=== PATIENT | female | born 1985 | race Hispanic/Latino ===

== ENCOUNTER 2018-09-30 09:26 | Emergency (ER) | payer OTHER, SELFPAY ==
[2018-09-30] MEDS ORDERED: ACETAMINOPHEN 325 MG TAB ONE (09:47)
== END 2018-09-30 10:19 | disposition home or self-care (01) ==
LOC: EDH 09:26
DX: S93.492A Sprain of other ligament of left ankle, initial encounter (principal); W18.39XA Other fall on same level, initial encounter; Y93.01 Activity, walking, marching and hiking; Y92.89 Other specified places as the place of occurrence of the external cause; Y99.8 Other external cause status
CPT/HCPCS: 73610

== ENCOUNTER 2019-01-21 05:02 | Emergency (ER) | payer OTHER | END 2019-01-21 05:35 | disposition home or self-care (01) | LOC: EDH 05:02 | DX: Z02.83 Encounter for blood-alcohol and blood-drug test (principal); Z72.0 Tobacco use ==

== ENCOUNTER 2020-07-15 10:43 | Emergency (ER) | payer SELFPAY | END 2020-07-15 11:29 | disposition home or self-care (01) | LOC: EDH 10:43 | DX: K13.79 Other lesions of oral mucosa (principal) ==

== ENCOUNTER 2024-02-08 21:34 | Emergency (ER) | payer OTHER ==
[~2024-02-08] VITALS: Ht 157.5 cm; Wt 108.9 kg
[2024-02-08] MEDS ORDERED: CEPH500B PO (23:37)
[2024-02-08 23:40] VITALS: BP 138/72; PULSE 72; RESP 20; O2SAT 97
== END 2024-02-08 23:42 | disposition home or self-care (01) ==
LOC: EDH 21:34
DX: T19.2XXA Foreign body in vulva and vagina, initial encounter (principal); W44.9XXA Unspecified foreign body entering into or through a natural orifice, initial encounter